=== PATIENT | male | born 1975 | race Caucasian/White ===

== ENCOUNTER → 2025-02-15 | Outpatient (CLI) | payer MEDICAID, SELFPAY ==
--- OUTSIDE RECORDS SUMMARY | 2024-12-06 06:30 | XMS RPT_ITS ---
Author Name Auto Generated Organization [facility] Care Team Providers Care Fence Laborer Name Role Phone PHYSICIAN, NONE Primary Care Unavailable KADE HERRING, KEVON Attending Suze HERRING, KEVON Primary Care Suze HERRING, KEVON Attending BERNARDO Ellington DO Attending Unavailable KADE ESTRELLAN-CELE, KEVON Primary Care Unavailabl e OCHOA QUIJANO, CLAY Attending Unavailable PHYSICIAN, NONE Primary Care Unavailable HORACE KEMP, DR YESSENIA Thao Attending Radha vargas PHYSICIAN, NONE Primary Care Unavailable PHYSICIAN, NONE Primary Care Unavailable KADE HERRING, KEVON Attending Brice e PROBLEMS DATE TYPE CONDITION / CODE ATTENDING STATUS [facility] 12/06/2024 Unknown Allergic contact dermatitis due to plants, except food / L23.7(ICD-10) BERNARDO BLUNT DO [facility] 12/06/2024 Final Diagnosis (Discharge) Allergic contact dermatitis due to plants, except food / L23.7(ICD-10) BERNARDO BLUNT DO [facility] 11/05/2024 Final Diagnosis (Discharge) Dizziness and giddiness / R42(ICD-10) KEVON ADAMS [facility] 09/22/2024 Unknown Dizziness and giddiness / R42(ICD-10) DR YESSENIA VU MD, V [facility] 09/22/2024 Unknown Other nonspecifi c abnormal finding of lung field / R91.8(ICD-10) DR YESSENIA VU MD, V Active [facility] PROCEDURES No Procedure Records Found RESULTS MRI BRAIN W/ + W/O CONTRAST Observed: 4:15 PM Status: F Source: [facility] ORIGINAL EXAMINATION: MRI OF THE BRAIN WITHOUT AND WITH CONTRAST 10/07/2024 4:24 pm TECHNIQUE: Multiplanar multisequence MRI of the head/brain was performed without and with the administration of intravenous contrast. COMPARISON: None. HISTORY: ORDERING SYSTEM PROVIDED HISTORY: Reason for Exam: worsening dizziness, lung mass suspicious for cancer, rule out metastasis to the brain FINDINGS: INTRACRANIAL STRUCTURES/VENTRICLES: There is no acute infarct. No mass effect or midline shift. No evidence of an acute intracranial hemorrhage. The ventricles and sulci are normal in size and configuration. The sellar/suprasellar regions appear unremarkable. The normal signal voids within the major intracranial vessels appear maintained. No abnormal focus of enhancement is seen within the brain. ORBITS: The visualized portion of the orbits demonstrate no acute abnormality. SINUSES: The visualized paranasal sinuses and mastoid air cells demonstrate no acute abnormality. There is deviation of the nasal septum to the left. BONES/SOFT TISSUES: The bone marrow signal intensity appears normal. The soft tissues demonstrate no acute abnormality. IMPRESSION: Unremarkable MRI examination of the brain. No evidence of metastatic disease. Interpreted by: Gian Keenan Preliminary Report By: Gian Keenan Electronically signed By Gian Keenan Dictated Date: 10/08/2024 5:42:56 AM Prelim Date: 10/08/2024 5:47:56 AM Sign Date: 10/08/2024 5:47:56 AM Ordering Provider: KEVON BRAUN UA Collected: 09/22/2024 6:15 PM Status: F Source: [facility] Order Comment: manual readin g performed for urine reagent strip TYPE CODE TESTS RESULT OUT OF RANGE REFERENCE UNITS LAB SPCUA(LOINC) UA Specimen Type Clean Catch LAB CLRUA(LOINC) UA Color Yellow LAB APPUA(LOINC) UA Appear Clear Clear LAB SGUA(LOINC) UA Spec Grav 1.015 1.015-1.025 LAB GLUA(LOINC) UA Glucose Negative Negative mg/dL LAB BILUA(LOINC) UA Bili Negative Negative LAB KETUA(LOINC) UA Ketones Negative Negative mg/dL LAB BLDUA(LOINC) UA Blood Negative Negative LAB PHUA(LOINC) UA pH 7.0 5.0 - 8.0 LAB PROUA(LOINC) UA Protein Trace Negative mg/dL LAB UROUA(LOINC) UA Urobilinogen 0.2 0.2-1.0 E.U ./dL LAB NITUA(LOINC) UA Nitrite Negative Negative LAB LEUUA(LOINC) UA Leuk Est Negative Negative Performed By: #### UA #### [facility] [address] [place], [place] [address] CT ANGIOGRAPHY CHEST W/CONTRAST Observed: 09/22/2024 5:44 PM Status: F Source: [facility] ORIGINAL EXAMINATION: CTA OF THE CHEST09/22/2024 6:18 pm CTA CHEST WITH CONTRAST TECHNIQUE: CTA of the chest was performed after the administration of intravenous contrast. Multiplanar reformatted images are provided for review. MIP images are provided for review. Automated exposure control, iterative reconstruction, and/or weight based adjustment of the mA/kV was utilized to reduce the radiation dose to as low as reasonably achievable. CTA of the thorax was acquired in the axial plane. Coronal and sagittal reformatted images were reviewed. Three dimensional reconstructions were created on a separate workstation. COMPARISON: CT abdomen/pelvis 12/07/2021 HISTORY: ORDERING SYSTEM PROVIDED HISTORY: Reason for Exam: difficulty breathing; suspect PE FINDINGS: No filling defects seen in the pulmonary arteries. The heart size is normal; no pericardial effusion. There are no pathologically enlarged axillary, mediastinal or hilar lymph nodes. The aorta is normal in caliber. Trachea and central airways are patent. No pulmonary consolidation identified. Mild bronchiectasis is noted. Within the left upper lobe is a spiculated nodule measuring up to 1.6 cm (series 2, image 77). There is no pleural effusion or pneumothorax. Mild degenerative changes noted within the thoracic spine. The upper abdomen is not evaluated in detail. No suspicious findings seen in the visualized portion of the abdomen. IMPRESSION: No convincing evidence of pulmonary embolism. A 1.6 cm spiculated nodule is seen within the left upper lobe, and is concerning for malignancy. PET-CT and/or biopsy are advised, according to Fleischner society guidelines. Interpreted by: Remy Ambrose Preliminary Report By: Morena England Electronically signed By Remy Ambrose Dictated Date: 09/22/2024 6:21:17 PM Prelim Date: 09/22/2024 6:56:48 PM Sign Date: 09/22/2024 6:56:48 PM Ordering Provider: RONAN NIÑO CT ANGIOGRAPHY NECK W/CONTRAST Observed: 09/22/2024 5:35 PM Status: F Source: [facility] ORIGINAL EXAMINATION: CTA OF THE NECK 09/22/2024 6:08 pm TECHNIQUE: CTA of the neck was performed with the administration of intravenous contrast. Multiplanar reformatted images are provided for review. MIP images are provided for review. Stenosis of the internal carotid arteries measured using NASCET criteria. Automated exposure control, iterative reconstruction, and/or weight based adjustment of the mA/kV was utilized to reduce the radiation dose to as low as reasonably achievable. 3D reconstructed images were performed on a separate workstation and provided for review. COMPARISON: None. HISTORY: ORDERING SYSTEM PROVIDED HISTORY: Reason for Exam: dizziness FINDINGS: Right carotid: The right common carotid artery is patent. The right internal carotid artery is patent. The right external carotid artery is patent. Left carotid: The left common carotid artery is patent. The left internal carotid artery is patent. The left external carotid artery is patent. Vertebral arteries: Right vertebral artery is patent. The left vertebral artery is patent. There is diminutive left vertebral artery. Nonvascular Findings: Bilateral parotid glands, submandibular glands, and sublingual glands, are grossly normal in morphology. Epiglottis is normal in thickness. At the left upper lobe, there is a lateral pulmonary nodule measuring 1.3 x 1.2 cm. Follow-up CT chest would be useful for further evaluation. The larynx and pharynx are unremarkable. No acute abnormality of the salivary and thyroid glands. BONES: No acute osseous abnormality. Osseous structures are intact with degenerative changes. IMPRESSION: 1. No evidence of hemodynamically significant stenosis of the bilateral internal carotid arteries or vertebral arteries. 2. Left upper lobe pulmonary nodule measuring 1.3 x 1.2 cm. Follow-up CT chest would be useful for further evaluation. Interpreted by: Don Fowler Preliminary Report By: Don Fowler Electronically signed By Don Fowler Dictated Date: 09/22/2024 6:17:55 PM Prelim Date: 09/22/2024 6:28:59 PM Sign Date: 09/22/2024 6:28:59 PM Ordering Provider: RONAN NIÑO CT ANGIOGRAPHY HEAD W/ CONTRAST Observed: 09/22/2024 5:35 PM Status: F Source: [facility] ORIGINAL EXAMINATION: CTA OF THE HEAD WITH CONTRAST 09/22/2024 6:01 pm: TECHNIQUE: CTA of the head/brain was performed with the administration of intravenous contrast. Multiplanar reformatted images are provided for review. MIP images are provided for review. Automated exposure control, iterative reconstruction, and/or weight based adjustment of the mA/kV was utilized to reduce the radiation dose to as low as reasonably achievable. COMPARISON: None. HISTORY: ORDERING SYSTEM PROVIDED HISTORY: Reason for Exam: dizziness FINDINGS: ANTERIOR CIRCULATION: No significant stenosis of the intracranial internal carotid, anterior cerebral, or middle cerebral arteries. No aneurysm. POSTERIOR CIRCULATION: Dominant right vertebral artery. Left vertebral artery is diminutive throughout its course. Bilateral [employer] with hypoplastic P1 segments. No significant stenosis of the vertebral, basilar, or posterior cerebral arteries. No aneurysm. IMPRESSION: No occlusion or hemodynamically significant stenosis of large intracranial arteries. I have personally reviewed the images of this examination and agree with the resident's findings and interpretation. Interpreted by: Remy Ambrose Preliminary Report By: Eileen Armando Electronically signed By Remy Ambrose Dictated Date: 09/22/2024 6:08:47 PM Prelim Date: 09/22/2024 6:13:42 PM Sign Date: 09/22/2024 7:17:57 PM Ordering Provider: RONAN NIÑO CT HEAD OR BRAIN W/O CONTRAST Observed: 09/22/2024 5:35 PM Status: F Source: [facility] ORIGINAL EXAMINATION: CT OF THE HEAD WITHOUT CONTRAST 09/22/2024 5:51 pm TECHNIQUE: CT of the head was performed without the administration of intravenous contrast. Automated exposure control, iterative reconstruction, and/or weight based adjustment of the mA/kV was utilized to reduce the radiation dose to as low as reasonably achievable. COMPARISON: None. HISTORY: ORDERING SYSTEM PROVIDED HISTORY: Reason for Exam: dizziness FINDINGS: BRAIN/VENTRICLES: There is no acute intracranial hemorrhage, mass effect or midline shift. No abnormal extra-axial fluid collection. The rivera-white differentiation is maintained without evidence of an acute infarct. There is no evidence of hydrocephalus. Parenchymal volume loss. ORBITS: The visualized portion of the orbits demonstrate no acute abnormality. SINUSES: The visualized paranasal sinuses and mastoid air cells demonstrate no acute abnormality. SOFT TISSUES/SKULL: No acute abnormality of the visualized skull. IMPRESSION: No acute intracranial hemorrhage, large cerebral artery territory infarct or mass-effect. I have personally reviewed the images of this examination and agree with the resident's findings and interpretation. Interpreted by: Remy Ambrose Preliminary Report By: Eileen Armando Electronically signed By Remy Ambrose Dictated Date: 09/22/2024 6:00:50 PM Prelim Date: 09/22/2024 6:03:00 PM Sign Date: 09/22/2024 6:52:07 PM Ordering Provider: RONAN NIÑO CBC Collected: 5:32 PM Status: F Source: [facility] TYPE CODE TESTS RESULT OUT OF RANGE REFERENCE UNITS LAB WBC(LOINC) WBC 3.7 Low 4.5-10.8 10 3/mcL LAB RBCCT(LOINC) RBC 4.68 4.50-6.00 10 6/mcL LAB HGB(LOINC) Hgb 14.9 13.0-17.5 G/dL LAB HCT(LOINC) Hct 43.5 40.0-52.0 % LAB MCV(LOINC) MCV 92.9 81.0-100.0 fL LAB MCH(LOINC) MCH 31.9 27.0-33.0 pg LAB MCHC(LOINC) MCHC 34.3 32.0-36.0 G/dL LAB RDW(LOINC) RDW 13.5 11.5-15.5 % LAB PLT(LOINC) Platelet 184 150-450 10 3/mcL LAB MPV(LOINC) MPV 7.3 6.4-10.5 fL Performed By: #### BMP, GFR, MDW, CBC, ANEU, PBNP, ADIFF, TROPHS #### [address] [address] .AUTO DIFF Collected: 09/22/2024 5:32 PM Status: F Source: [facility] TYPE CODE TESTS RESULT OUT OF RANGE REFERENCE UNITS LAB BISHOP(LOINC) Neutrophil % 60.3 50.0-75.0 % LAB LYM(LOINC) Lymphocyte % 27.9 20.0-40.0 % LAB MON(LOINC) Monocyte % 9.8 2.0-13.0 % LAB EO(LOINC) Eosinophil % 1.1 0.0-6.0 % LAB BAS(LOINC) Basophil % 0.9 0.0-2.5 % LAB ABLYM(LOINC) Lymphocyte, Absolute 1.0 0.9-4.3 10 3/mcL LAB CICI(LOINC) Monocyte, Absolute 0.4 0.1-1.4 10 3/mcL LAB AEOS(LOINC) Eosinophil, Absolute 0.0 0.0-0.7 10 3/mcL LAB ABAS(LOINC) Basophil, Absolute 0.0 0.0-0.3 10 3/mcL Performed By: #### BMP, GFR, MDW, CBC, ANEU, PBNP, ADIFF, TROPHS #### [address] [address] .NEUABS Collected: 5:32 PM Status: F Source: [facility] TYPE CODE TESTS RESULT OUT OF RANGE REFERENCE UNITS LAB ANEU(LOINC) Neutrophil, Absolute 2.2 Low 2.3-8.1 10 3/mcL Performed By: #### BMP, GFR, MDW, CBC, ANEU, PBNP, ADIFF, TROPHS #### [address] [address] .MDW Collected: 09/22/2024 5:32 PM Status: F Source: [facility] TYPE CODE TESTS RESULT OUT OF RANGE REFERENCE UNITS LAB MDW(LOINC) Monocyte Distribution Width 16.56 0.00-20.00 Result Comment: For ED adult patients suspected of sepsis, MDW<=20.0 does not rule out sepsis or risk of sepsis Performed By: #### BMP, GFR, MDW, CBC, ANEU, PBNP, ADIFF, TROPHS #### [address] [address] TROPHS Collected: 09/22/2024 5:32 PM Status: F Source: [facility] TYPE CODE TESTS RESULT OUT OF RANGE REFERENCE UNITS LAB HSTROP(LOINC) High Sensitivity Troponin I 22 0-76 ng/L Result Comment: High Sensiti ve Troponin I Reference Ranges: Female: 0-51 ng/L Male: 0-76 ng/L Testing performed on [employer] using a homogeneous sandwich chemiluminescent immunoassay based on [employer] technology. Performed By: #### NATALIA, GFR, MDW, CBC, ANEU, PBNP, ADIFF, TROPHS #### [address] [address] BMP Collected: 09/22/2024 5:32 PM Status: F Source: [facility] TYPE CODE TESTS RESULT OUT OF RANGE REFERENCE UNITS LAB GLU(LOINC) Glucose Level 128 High 70-105 mg/dL LAB NA(LOINC) Sodium Level 140 136-145 mmol/L LAB K(LOINC) Potassium Level 4.2 3.5-5.1 mmol/L LAB CL(LOINC) Chloride 104 98-107 mmol/L LAB CO2(LOINC) CO2 31 High 22-29 mmol/L LAB EBAL(LOINC) Electrolyte Balance 5.0 4.0-15.0 mEq/L LAB BUN(LOINC) BUN 17 7-18 mg/dL LAB CRE(LOINC) Creatinine Lvl (s) 0.86 0.67-1.17 mg/dL LAB BC(LOINC) BUN/Creatinine Ratio 20 7-27 ratio LAB CA(LOINC) Calcium Lvl 9.3 8.4-10.2 mg/dL Performed By: #### NATALIA, GFR, MDW, CBC, ANEU, PBNP, ADIFF, TROPHS #### [address] [address] PBNP Collected: 09/22/2024 5:32 PM Status: F Source: [facility] TYPE CODE TESTS RESULT OUT OF RANGE REFERENCE UNITS LAB PBNP(LOINC) N-Terminal proBNP 110 0-125 pg/mL Result Comment: NT-proBNP re sults of less than 300 pg/mL effectively rules out acute congestive heart failure with 99% negative predictive value. Performed By: #### NATALIA, GFR, MDW, CBC, ANEU, PBNP, ADIFF, TROPHS #### [address] [address] .GFR Collected: 09/22/2024 5:32 PM Status: F Source: [facility] TYPE CODE TESTS RESULT OUT OF RANGE REFERENCE UNITS LAB eGFR(LOINC) Estimated Glomerular Filtration Rate 105 ml/min/1. 73sqm Result Comment: Stages of Chronic Kidney Disease (CKD) Stage Description eGFR(ml/min/1.73 sq.m.) CKD 1 Normal kidney function or >=90 normal kindney function with possible kidney damage (ex. Proteinuria) CKD 2 Kidney damage with mild loss 60-89 of kidney function CKD 3a Mild to moderate loss of kidney 45-59 function CKD 3b Moderate to severe loss of 30-44 of kindey function CKD 4 Severe loss of kidney function 15-29 CKD 5 Kidney failure <15 Note: (go live 2024) the eGFR calculation was updated to the 2020 CKD-EPI creatinine equation without a race factor to calculate the eGFR results. Performed By: #### BMP, GFR, MDW, CBC, ANEU, PBNP, ADIFF, TROPHS #### [address] [address] ALLERGIES No Allergies Records Found ENCOUNTERS ADMIT/DISCHARGE ACCOUNT NUMBER ADMITTING ENCOUNTER CLASS LOC ATION SOURCE 12/06/2024/ 5 [id number] Emergency [facility] 11/05/2024/ 5 [id number] Ambulatory [facility]Building: [facility] 10/27/2024 [id number] Ambulatory ABuilding:P ET C [facility] 10/07/2024/ 5 [id number] Ambulatory [facility]Building: RAD [facility] 09/22/2024/ 5 [id number] Emergency [facility]Building: [facility] 07/20/2024/ 5 [id number] Emergency [facility]INBuilding: [facility] PAYERS ENCOUNTER GUARANTOR PAYER SUBSCRIBER SOURCE 12/06/2024 SHAHID BOWLESB: [id number] [place] [address]Grc: () Primary Insurance:[facility] [employer] [facility] Cent[facility] Number: [id number] tive Date:9726-02-32Drwo Name:M[place]AINE [place] [address]XA: SHAHID Varma JELENAB: [id number] [place] [address]Axl: (HP) (WP) [facility] 12/06/2024 Secondary Insurance:MEDICAID [facility] Medical Centery Number: [id number] e Date:1460-90-99Zxse Name:[place] [address]QC: SHAHID A JELENAB: [id number] [place] [address]Fis: (HP) (WP) [facility] 11/05/2024 SHAHID BOWLESB: [place] [address]Che: (HP) Primary Insurance:[employer] INSCOPolicy Number: [id number] tive Date:2553-37-96Ylhe Name:MADELAINE [place] [address]MF: SHAHID Varma JELENAB: [id number] [place] [address]Qni: (HP) (WP) [facility] 11/05/2024 Secondary Insurance:[place]ICA[place] INSCOPolicy Number: [id number] e Date:1833-42-93Fxcn Name:[place] [address]DZ: SHAHID Kojo JELENAB: [id number] [place] [address]Qmo: (HP) (WP) [facility] 10/27/2024 SHAHID PAKB: [place] [address]Gez: (HP) Primary Insurance:[employer] CROSS INSCOPolicy Number: [id number] tive Date:5841-98-52Rqbt Name:MADELAINE [place] [address]TL: SHAHID Varma JELENAB: [id number] [place] [address]Qei: (HP) () [facility] 10/07/2024 SHAHID Varma JELENAB: [place] [address]Jzz: (HP) Primary Insurance:[employer] CROSS INSCOPolicy Number: [id number] tive Date:5379-08-43Ajnn Name:M[place]ELAINE [place] [address]IN: SHAHID Varma JELENAB: [id number] [place] [address]Xlp: (HP) () [facility] 09/22/2024 SHAHID Varma JELENAB: [place] [address]Hbt: (HP) Primary Insurance:[employer] CROSS INSCOPolicy Number: [id number] tive Date:0259-51-29Xfby Name:MADELAINE [place] [address]IK: SHAHID PAKDOB: [id number] [place] [address]Amp: (HP) (WP) [facility] 07/20/2024 SHAHID HENDERSON: [id number] [place] [address] Primary Insurance:[employer] [facility] Medical Centery Number: [id number] tive Date:6951-11-44Antw Name:MADELAINE [place] [address], [place] [address]LD: SHAHID BOWLESB: [id number] [place], [place] [address]Nhv: () [facility]
--- OUTSIDE RECORDS SUMMARY | 2024-12-06 06:30 | XMS RPT_ITS ---
Author Name Auto Generated Organization [facility] Care Team Providers Care Rehabilitation Specialist Name Role Phone PHYSICIAN, NONE Primary Care [...] DATE TYPE CONDITION / CODE ATTENDING STATUS [facility] 12/06/2024 Unknown Allergic contact dermatitis due to plants, except food / L23.7(ICD-10) BERNARDO BLUNT DO [facility] 12/06/2024 Final Diagnosis (Discharge) Allergic contact dermatitis due to plants, except food / L23.7(ICD-10) BERNARDO BLUNT DO [facility] 11/05/2024 Final Diagnosis (Discharge) Dizziness and giddiness / R42(ICD-10) KEVON ADAMS [facility] 09/22/2024 Unknown Dizziness and giddiness / R42(ICD-10) DR YESSENIA VU MD, V [facility] 09/22/2024 Unknown Other nonspecifi c abnormal finding of lung field / R91.8(ICD-10) DR YESSENIA VU MD, V Active [facility] PROCEDURES No Procedure Records Found RESULTS MRI BRAIN W/ + W/O CONTRAST Observed: 4:15 PM Status: F Source: [facility] ORIGINAL EXAMINATION: MRI OF THE [...] Collected: 09/22/2024 6:15 PM Status: F Source: [facility] Order Comment: manual readin g [...] Negative Negative Performed By: #### UA #### [facility] [address] [place], [place] [address] CT ANGIOGRAPHY CHEST W/CONTRAST Observed: 09/22/2024 5:44 PM Status: F Source: [facility] ORIGINAL EXAMINATION: CTA OF THE [...] Observed: 09/22/2024 5:35 PM Status: F Source: [facility] ORIGINAL EXAMINATION: CTA OF THE [...] Observed: 09/22/2024 5:35 PM Status: F Source: [facility] ORIGINAL EXAMINATION: CTA OF THE [...] artery is diminutive throughout its course. Bilateral ZIPPER IRONER with hypoplastic P1 segments. No significant stenosis [...] Observed: 09/22/2024 5:35 PM Status: F Source: [facility] ORIGINAL EXAMINATION: CT OF THE [...] CBC Collected: 5:32 PM Status: F Source: [facility] TYPE CODE TESTS RESULT OUT [...] MDW, CBC, ANEU, PBNP, ADIFF, TROPHS #### [address] [address] .AUTO DIFF Collected: 09/22/2024 5:32 PM Status: F Source: [facility] TYPE CODE TESTS RESULT OUT [...] MDW, CBC, ANEU, PBNP, ADIFF, TROPHS #### [address] [address] .NEUABS Collected: 5:32 PM Status: F Source: [facility] TYPE CODE TESTS RESULT OUT OF RANGE REFERENCE UNITS LAB ANEU(LOINC) Neutrophil, Absolute 2.2 Low 2.3-8.1 10 3/mcL Performed By: #### BMP, GFR, MDW, CBC, ANEU, PBNP, ADIFF, TROPHS #### [address] [address] .MDW Collected: 09/22/2024 5:32 PM Status: F Source: [facility] TYPE CODE TESTS RESULT OUT OF RANGE REFERENCE UNITS LAB MDW(LOINC) Monocyte Distribution Width 16.56 0.00-20.00 Result Comment: For ED adult patients suspected of sepsis, MDW<=20.0 does not rule out sepsis or risk of sepsis Performed By: #### BMP, GFR, MDW, CBC, ANEU, PBNP, ADIFF, TROPHS #### [address] [address] TROPHS Collected: 09/22/2024 5:32 PM Status: F Source: [facility] TYPE CODE TESTS RESULT OUT OF RANGE REFERENCE UNITS LAB HSTROP(LOINC) High Sensitivity Troponin I 22 0-76 ng/L Result Comment: High Sensiti ve Troponin I Reference Ranges: Female: 0-51 ng/L Male: 0-76 ng/L Testing performed on Urbster using a homogeneous sandwich chemiluminescent immunoassay based on [email or web address] technology. Performed By: #### NATALIA, GFR, MDW, CBC, ANEU, PBNP, ADIFF, TROPHS #### [address] [address] BMP Collected: 09/22/2024 5:32 PM Status: F Source: [facility] TYPE CODE TESTS RESULT OUT [...] MDW, CBC, ANEU, PBNP, ADIFF, TROPHS #### [address] [address] PBNP Collected: 09/22/2024 5:32 PM Status: F Source: [facility] TYPE CODE TESTS RESULT OUT OF RANGE REFERENCE UNITS LAB PBNP(LOINC) N-Terminal proBNP 110 0-125 pg/mL Result Comment: NT-proBNP re sults of less than 300 pg/mL effectively rules out acute congestive heart failure with 99% negative predictive value. Performed By: #### NATALIA, GFR, MDW, CBC, ANEU, PBNP, ADIFF, TROPHS #### [address] [address] .GFR Collected: 09/22/2024 5:32 PM Status: F Source: [facility] TYPE CODE TESTS RESULT OUT [...] MDW, CBC, ANEU, PBNP, ADIFF, TROPHS #### [address] [address] ALLERGIES No Allergies Records Found ENCOUNTERS ADMIT/DISCHARGE ACCOUNT NUMBER ADMITTING ENCOUNTER CLASS LOC ATION SOURCE 12/06/2024/ 5 [id number] Emergency [facility] 11/05/2024/ 5 [id number] Ambulatory [facility]: [facility] 10/27/2024 [id number] Ambulatory ABuilding:P [facility] 10/07/2024/ 5 [id number] Ambulatory [facility]: RAD [facility] 09/22/2024/ 5 [id number] Emergency [facility]: [facility] 07/20/2024/ 5 [id number] Emergency [facility]: [facility] PAYERS ENCOUNTER [facility] PAYER SUBSCRIBER SOURCE 12/06/2024 SHAHID BOWLESB: [id number] [place] [address]Bfp: () Primary Insurance:[facility] [employer] [facility]orth[facility] Centery Number: [id number] tive Date:7544-41-49Fcme Name:M[place]ELAINE [place] [address]UP: SHAHID Varma JELENAB: [id number] [place] [address]Vqd: (HP) (WP) [facility] 12/06/2024 Secondary Insurance:[facility]ICAID [facility] INSNorthwestern Medical Centery Number: [id number] e Date:7626-05-88Mesg Name:[place] [address]QC: SHAHID A JELENAB: [id number] [place] [address]Tgv: (HP) (WP) [facility] 11/05/2024 SHAHID BOWLESB: [place] [address]Ehf: (HP) Primary Insurance:[employer] INSCOPolicy Number: [id number] tive Date:3008-95-19Uaox Name:M[place]ELAINE [place] [address]ZQ: SHAHID Varma JELENAB: [id number] [place] [address]Xgz: (HP) (WP) [facility] 11/05/2024 Secondary Insurance:[place] INSCOPolicy Number: [id number] e Date:5267-55-20Xoss Name:[place] [address]FU: SHAHID Kojo JELENAB: [id number] [place] [address]Vmz: (HP) (WP) [facility] 10/27/2024 SHAHID PAKB: [place] [address]Jfo: (HP) Primary Insurance:[employer] CROSS INSCOPolicy Number: [id number] tive Date:2377-24-28Bpdd Name:M[place]ELAINE [place] [address]HR: SHAHID Varma JELENAB: [id number] [place] [address]Ern: (HP) () [facility] 10/07/2024 SHAHID Varma JELENAB: [place] [address]Bgw: (HP) Primary Insurance:[employer] CR[employer] INSCOPolicy Number: [id number] tive Date:1791-41-33Kawu Name:MADELAINE [place] [address]IV: SHAHID Varma JELENAB: [id number] [place] [address]Moq: (HP) () [facility] 09/22/2024 SHAHID Varma JELENAB: [place] [address]Qtz: (HP) Primary Insurance:[employer] CR[employer] INSCOPolicy Number: [id number] tive Date:1145-24-23Rqol Name:[place]ELAINE [place] [address]RJ: SHAHID PAKDOB: [id number] [place] [address]Gfg: (HP) (WP) [facility] 07/20/2024 SHAHID HENDERSON: [id number] [place] [address] Primary Insurance:[employer] INSNorthwestern Medical Centery Number: [id number] tive Date:0906-82-69Nhrt Name:MADELAINE PHILLIPS [address], [place] [address]KS: SHAHID BOWLESB: [id number] [place], [place] [address]Gdc: () [facility]
[2025-02-15 15:44] LABS: Hematocrit 42.7 % (40-54); Hemoglobin 15.2 g/dL (13.0-16.5); Immature Granulocytes Count 0.010 X10^3/uL (0.0-0.0); Mean Corp Hgb Conc 35.6 g/dL (32-36); Mean Corpuscular Volume 93.8 fL (80-94); Mean Platelet Vol. 9.0 fl (6.2-12.0); NRBC Flagged by Analyzer 0 % (0-5); Platelet Count 211 K/mm3 (150-450); RBC Distribution Width CV 11.9 % (11.6-14.6); RBC Distribution Width SD 41.7 fl (35.1-43.9); Red Blood Count 4.55 M/mm3 (4.6-6.2); White Blood Count 4.3 K/mm3 (4.4-11.0)
[2025-02-15 16:44] LABS: AST(SGOT) 41 U/L (<=37); Alanine Aminotransfer ALT/SGPT 45 U/L (<=46); Albumin, Serum 4.8 g/dL (3.5-5.0); Alkaline Phosphatase 65 U/L (40-129); Anion Gap 11 (5-15); BUN 11 mg/dL (4-19); BUN/Creat Ratio 12.9 RATIO (10-20); Calcium,Total 9.7 mg/dL (7.6-11.0); Carbon Dioxide 25.5 mmol/L (21.0-32.0); Chloride 102 mmol/L (98-108); Globulin 2.9 g/dL (2.2-4.2); Glucose 95 mg/dL (70-99); Potassium 4.0 mmol/L (3.3-5.1)
== END | disposition home or self-care (01) ==
LOC: LAB 15:05
PROVIDERS: PCP Nurse Practitioner Primary Care; Referring Provider Nurse Practitioner Family; Visit Provider Nurse Practitioner Family
DX: R91.8 Other nonspecific abnormal finding of lung field (principal)
CPT/HCPCS: 36415; 80053; 85025

== ENCOUNTER 2025-03-10 07:54 | Outpatient (CLI) | payer MEDICAID, SELFPAY ==
[2025-03-10] VITALS (16 sets, daily range): BP systolic 93–145; BP diastolic 56–99; PULSE 61–82; RESP 15–18; TEMP 36.6; O2SAT 96–99; BMI 19.8
[2025-03-10 08:17] LABS: Hematocrit 44.5 % (40-54); Hemoglobin 15.3 g/dL (13.0-16.5); Immature Granulocytes Count 0.020 X10^3/uL (0.0-0.0); Mean Corp Hgb Conc 34.4 g/dL (32-36); Mean Corpuscular Volume 93.7 fL (80-94); Mean Platelet Vol. 9.1 fl (6.2-12.0); NRBC Flagged by Analyzer 0 % (0-5); Platelet Count 223 K/mm3 (150-450); RBC Distribution Width CV 11.7 % (11.6-14.6); RBC Distribution Width SD 40.5 fl (35.1-43.9); Red Blood Count 4.75 M/mm3 (4.6-6.2); White Blood Count 4.5 K/mm3 (4.4-11.0)
[2025-03-10 08:22] LABS: Partial Thromboplast Time 29.3 Seconds (24.1-36.2); Prothrombin Time (Protime)PT. 14.4 SECONDS (11.7-14.9)
[2025-03-10] MEDS: 0.9% Normal Saline (250mL Bag) 250 ML 15 ML IV (09:03)
[2025-03-10] MEDS: Midazolam 2 MG/2 ML Syringe IV ×2 (09:05→09:15)
[2025-03-10] MEDS: fentaNYL 100 MCG/2 ML Ampul IV (09:06)
[2025-03-10] MEDS: Lidocaine 2% (20 ml mdv) 20 ML Vial INFILT (09:18)
== END 2025-03-10 23:59 | disposition home or self-care (01) ==
PROVIDERS: Radiology Diagnostic Radiology; PCP Nurse Practitioner Family; Referring Provider Internal Medicine Hematology & Oncology; Visit Provider Internal Medicine Hematology & Oncology
DX: R91.1 Solitary pulmonary nodule (principal); J44.9 Chronic obstructive pulmonary disease, unspecified; F10.20 Alcohol dependence, uncomplicated; R42 Dizziness and giddiness; F17.210 Nicotine dependence, cigarettes, uncomplicated
CPT/HCPCS: 32408; 36415; 71046; 77012; 85025; 85610; 85730; 88172; 88305; 88313; 99156; C2613